=== PATIENT | female | born 1985 | race African-American/Black ===

== ENCOUNTER 2017-09-19 11:46 | Emergency (ER) | payer SELFPAY ==
[~2017-09-19] VITALS: Ht 160 cm; Wt 74.0 kg
[~2017-09-19 11:46] MED LIST: ZOFRAN
[2017-09-19] MEDS ORDERED: LIDOCAINE HCL 1% 20ML VIAL (Pyxis) INJ INFIL ONE (13:30)
[2017-09-19] MEDS ORDERED: TETANUS, DIPHTHERIA, PERTUSSIS VAC/PF 0.5ML (>7YR OLD) IM ONE (13:30)
[2017-09-19] MEDS ORDERED: ACETAMINOPHEN WITH CODEINE 300/30MG TABLET PO ONE (13:45)
[2017-09-19 13:49] VITALS: BP 140/89
== END 2017-09-19 14:47 | disposition home or self-care (01) ==
LOC: ER 11:46
DX: S61.412A Laceration without foreign body of left hand, initial encounter (principal); W45.8XXA Other foreign body or object entering through skin, initial encounter; Y93.89 Activity, other specified; Y92.89 Other specified places as the place of occurrence of the external cause; Y99.8 Other external cause status
CPT/HCPCS: 12002; 90471; 90715; 99283; J3490; X7700; Z7610